=== PATIENT | male | born 1955 | race African-American/Black ===

== ENCOUNTER 2019-10-15 07:28 | Inpatient (IN) | payer OTHER ==
[2019-10-14 14:25] VITALS: BMI 27.6
[2019-10-15 07:55] LABS: HEMATOCRIT 43.9 % (35.4-49); HEMOGLOBIN 14.5 GM/dL (11.7-16.9); MCH 29.1 pg (25.7-33.7); MCHC 33.1 g/dl (32.0-35.9); MEAN CELL VOLUME 87.9 fl (80-96); PLATELET COUNT 313 K/MM3 (134-434); RDW 15.4 % (11.9-15.9); WHITE BLOOD COUNT 6.4 K/mm3 (4.0-10.0)
[2019-10-15] MEDS ORDERED: CEFAZOLIN 2 GM/D5W 2 GM/50 ML ML IVPB ONE (07:55)
[2019-10-15] MEDS ORDERED: ROCURONIUM BROMIDE 50 MG/5 ML SYRINGE ONE (08:01)
[2019-10-15] MEDS ORDERED: PROPOFOL 20 ML ONE ×3 (08:01)
--- NOTE | 2019-10-15 08:02 | HP ---
History & Physical Update - History History: No Change - Physical Physical: No Change - Assessment Assessment: No Change - Plan Plan: No Change
[2019-10-15] MEDS ORDERED: ceFAZolin SODIUM 1 GM VIAL ONE (08:08)
[2019-10-15] MEDS ORDERED: fentaNYL CITRATE 250 MCG/5 ML VIAL ONE (08:08)
[2019-10-15] MEDS ORDERED: MIDAZOLAM HCL 2 MG/2 ML SINGLE DOSE VIAL ONE ×3 (08:08→08:13)
[2019-10-15] MEDS ORDERED: DESFLURANE GAS 240 ML BOTTLE IH ONE (08:11)
[2019-10-15 08:18] LABS: ALBUMIN 3.9 g/dl (3.4-5.0); BILIRUBIN,TOTAL 0.6 mg/dL (0.2-1); BLOOD UREA NITROGEN 12.2 mg/dL (7-18); CALCIUM 9.7 mg/dL (8.5-10.1); CREATININE 1.1 mg/dL (0.55-1.3); POTASSIUM 4.4 mmol/L (3.5-5.1); TOT PROT 7.5 g/dl (6.4-8.2)
[2019-10-15] MEDS ORDERED: BUPIVACAINE HCL/PF 0.5% (5 MG/ML) 30 ML VIAL IJ ONE (08:32)
[2019-10-15] MEDS ORDERED: ceFAZolin SODIUM 1 GM VIAL IVPB ONE (08:56)
[2019-10-15] MEDS ORDERED: GLYCOPYRROLATE 0.2 MG/1 ML VIAL ONE ×3 (12:16→12:24)
[2019-10-15] MEDS ORDERED: NEOSTIGMINE METHYLSULFATE 0.5 MG/ML - 10 ML MDV ONE (12:16)
[2019-10-15] MEDS ORDERED: ACETAMINOPHEN INJECTION 100 ML IVPB ONE (13:12)
[2019-10-15] MEDS ORDERED: oxyCODONE HCL 5 MG TABLET PO PRN (13:16)
[2019-10-15] MEDS ORDERED: ONDANSETRON 4 MG/2 ML VIAL IVPUSH PRN (13:16)
[2019-10-15] MEDS ORDERED: OXYBUTYNIN CHLORIDE 5 MG TABLET PO PRN (13:20)
[2019-10-15] MEDS ORDERED: diphenhydrAMINE HCL 50 MG CAPSULE PO PRN (13:20)
[2019-10-15] MEDS ORDERED: ONDANSETRON 4 MG/2 ML VIAL IVPB PRN (13:20)
[2019-10-15] MEDS ORDERED: ACETAMINOPHEN 1000 MG/100 ML VIAL (NON FORMULARY) IVPB ONE (13:25)
--- NOTE | 2019-10-15 13:41 | OP ---
Operative Note - Note: Operative Date: 10/15/19 Pre-Operative Diagnosis: prostate cancer Operation: robotic assisted prostatectomy Surgeon: Maliha France Case Technician: Marialuisa Varela Anesthesiologist/ROBOT DESIGNER: Juma Davies Anesthesia: General Estimated Blood Loss (mls): 200 Fluid Volume Replaced (mls): 1,600 Operative Report Dictated: Yes
--- NOTE | 2019-10-15 13:43 | SURG ---
Surgery Furniture Servicer Note Furniture Servicer: Marialuisa Varela PA-C Date of Service: 10/15/19 Diagnosis: prostate cancer Procedure: robotic assisted prostatectomy I was present for the entirety of the operative procedure. For further detail, please refer to operative report. Visit type - Case Type Case Type: Scheduled - Emergency Emergency Visit: No - New patient This patient is new to me today: Yes Date on this admission: 10/15/19
[2019-10-15] MEDS: SODIUM CHLORIDE 1,000 ML IV SCH (15:00)
[2019-10-15] MEDS ORDERED: SEVOFLURANE 250 ML BTL ONE (16:40)
[2019-10-15] MEDS ORDERED: CEFAZOLIN 1 GM in DEXTROSE 5%-WATER - 50 ML IVPB SCH ×2 (17:00→17:30)
[2019-10-15] MEDS: CEFAZOLIN 1 GM/D5W 1 GM/50 ML BAG IVPB SCH (18:07)
[2019-10-15] MEDS: DOCUSATE SODIUM 100 MG CAPSULE (FP) PO SCH (21:13)
[2019-10-15] MEDS: ACETAMINOPHEN 500 MG TABLET (FP) PO SCH (21:14)
[2019-10-15] MEDS: oxyCODONE HCL 5 MG TABLET PO PRN (21:14)
[2019-10-15] MEDS ORDERED: SODIUM CHLORIDE 1,000 ML IV STA (23:25)
[2019-10-15 23:55] LABS: BASO % 1.4 % (0-2.0); HEMOGLOBIN 10.8 GM/dL (11.7-16.9); LYMPH % 15.6 % (8-40); MCH 28.8 pg (25.7-33.7); MCHC 32.8 g/dl (32.0-35.9); MEAN CELL VOLUME 87.8 fl (80-96); MEAN PLT VOLUME 9.7 fl (7.5-11.1); MONO % 7.5 % (3.8-10.2); NEUT % 75.5 % (42.8-82.8); PLATELET COUNT 248 K/MM3 (134-434); RBC 3.76 M/mm3 (4.00-5.60); RDW 15.2 % (11.9-15.9); WHITE BLOOD COUNT 7.2 K/mm3 (4.0-10.0)
--- NOTE | 2019-10-16 00:02 | RAPID ---
Physical Examination Vital Signs: Vital Signs Temperature 98.1 F 10/15/19 22:52 Pulse Rate 78 10/15/19 22:52 Respiratory Rate 20 10/15/19 22:52 Blood Pressure 142/70 10/15/19 22:52 O2 Sat by Pulse Oximetry (%) 99 10/15/19 21:00 Labs: CBC, BMP 10/15/19 07:37 10/15/19 07:37 Rapid Response - Rapid Response Assessment: rapid response called at 11:10pm A rapid was called because the patient was bleeding from surgical site after straining during bowel movement. Pt became diaphoretic, dizzy with brief LOC ( regained within one min) requiring assistance back to bed. He had elizabeth blood from MEGHAN drain of 150 in total ( 100 from first and 50 in second). bloody urine unable to r/o if procedural or acute. PE at beginning of rapid : 88/60 mmhg ,98bpm after trendelenburg : 107/56 mmHG , HR 98 bpm, then 118/66 mmHg HR 85 general : diaphoretic, AAOx3 HEENT: no JVD Lung: VBS b/l with diffuse wheezing HEART: tachy RRR no MRG abdomen: +BS, slightly distended but non tender or rigid or rebound tenderness extremities: 2+ pulses Plan: acute bleeding from surgical site from excessive straining [address] and NS bolus administered PRBCs if cbc shows drop in H/H CBC, CMP , PT, INR- for hemodynamic status and coag ekg for baseline CT abdomen and pelvis w/o contrast to r/o intra abdominal bleeding ICU transfer Surgeon contacted and Dr English contacted waiting for recommendations. Dr France will see pt in the morning
[2019-10-16 00:08] LABS: INR 1.05 (0.83-1.09); PROTHROMBIN TIME (PATIENT) 12.4 SEC (9.7-13.0)
[2019-10-16 00:11] LABS: ACTIVATED PTT 25.3 SECONDS (25.2-36.5)
--- NOTE | 2019-10-16 00:14 | CONSULT ---
Consultation: REQUESTING PROVIDER:Maliha France CONSULT REQUEST: We have been asked to medically evaluate this patient for acute blood loss. HISTORY OF PRESENT ILLNESS: 63M with PMH of HTN and prostate cancer who presented to [facility] for robotic prostatectomy on 10/15/19. Patient underwent procedure successfully, had estimated blood loss of 200 mL and fluid replacement of 1600 during procedure. He tolerated the effects of anesthesia well. On 10/15/19 at 2330 patient felt that he needed to have a bowel movement and ambulated to the bathroom with an assist. Patient recalls feeling light headed and weak in the bathroom and losing conciousness, and waking up diaphoretic. He was initially weak. Patient was moved to his bed after episode and placed in trendelenburg position. Initial BP was : 88/60 mmhg with HR of 98 bpm. After placing in trendelenburg patient was 107/56 with HR of 98. Patient was given 2L of NS, and had CT abdomen /pelvis done which showed 9.3 cm anterior, left pelvic wall and retro-vesicle hematoma [facility]. Dr. France was made aware, patient will receive 2 units of blood and will be seen by urology team in the morning. Patient currently denies any symptoms of weakness, diaphoresis, dizziness, light-headedness, chest pain, and shortness of breath. present at bedside. REVIEW OF SYSTEMS: CONSTITUTIONAL: Absent: fever, chills, diaphoresis, generalized weakness, malaise, loss of appetite, weight change HEENT: Absent: rhinorrhea, nasal congestion, throat pain, throat swelling, difficulty swallowing, mouth swelling, ear pain, eye pain, visual changes CARDIOVASCULAR: Absent: chest pain, syncope, palpitations, irregular heart rate, lightheadedness , peripheral edema RESPIRATORY: Absent: cough, shortness of breath, dyspnea with exertion, orthopnea, wheezing, stridor, hemoptysis GASTROINTESTINAL: Present: abdominal distension, intermittent suprapubic pain. Absent: abdominal pain, abdominal distension, nausea, vomiting, diarrhea, constipation, melena, hematochezia GENITOURINARY: Present: hematuria Absent: dysuria, frequency, urgency, hesitancy, flank pain , genital pain MUSCULOSKELETAL: Absent: myalgia, arthralgia, joint swelling, back pain, neck pain SKIN: Absent: rash, itching, pallor HEMATOLOGIC/IMMUNOLOGIC: Absent: easy bleeding, easy bruising, lymphadenopathy, frequent infections ENDOCRINE: Absent: unexplained weight gain, unexplained weight loss, heat intolerance, cold intolerance NEUROLOGIC: Absent: headache, focal weakness or paresthesias, dizziness, unsteady gait, seizure, mental status changes, bladder or bowel incontinence PSYCHIATRIC: Absent: anxiety, depression, suicidal or homicidal ideation, hallucinations. PHYSICAL EXAMINATION Vital Signs - 24 hr 10/15/19 10/15/19 10/15/19 08:00 13:02 13:15 Temperature 97.8 F 97.9 F Pulse Rate 68 79 81 Respiratory 18 14 14 Rate Blood Pressure 144/79 145/87 171/89 H O2 Sat by Pulse 97 95 Oximetry (%) 10/15/19 10/15/19 10/15/19 13:30 13:45 14:00 Temperature Pulse Rate 75 73 70 Respiratory 12 14 14 Rate Blood Pressure 128/55 L 155/86 152/78 O2 Sat by Pulse 96 94 L 95 Oximetry (%) 10/15/19 10/15/19 10/15/19 14:15 14:30 14:45 Temperature Pulse Rate 70 74 80 Respiratory 13 10 20 Rate Blood Pressure 147/83 145/65 138/67 O2 Sat by Pulse 96 97 96 Oximetry (%) 10/15/19 10/15/19 10/15/19 15:00 21:00 22:52 Temperature 98.7 F 98.1 F Pulse Rate 74 78 Respiratory 13 20 Rate Blood Pressure 130/71 142/70 O2 Sat by Pulse 99 99 Oximetry (%) GENERAL: Awake, alert, and fully oriented, in no acute distress. HEAD: Normal with no signs of trauma. EYES: Pupils equal, round and reactive to light, extraocular movements intact, sclera anicteric, conjunctiva clear. EARS, NOSE, THROAT: Ears normal, nares patent, oropharynx clear without exudates. Moist mucous membranes. NECK: Normal range of motion, supple without lymphadenopathy, JVD, or masses. Left external jugular IV in place. LUNGS: Breath sounds equal, clear to auscultation bilaterally. No wheezes, and no crackles. No accessory muscle use. HEART: Regular rate and rhythm, normal S1 and S2 without murmur, rub or gallop. ABDOMEN: Distended abdomen. Nontender. Hypoactive bowel sounds. MEGHAN drain in place in the right abdomen. Draining blood. Surgical site is covered with pressure dressing. Surgical site is nonerythematous, one suture is tied around drain distally from skin. MUSCULOSKELETAL: Normal range of motion at all joints. No bony deformities or tenderness. No CVA tenderness. UPPER EXTREMITIES: 2+ pulses, warm, well-perfused. No cyanosis. No clubbing. Cap refill <2 seconds. No peripheral edema. LOWER EXTREMITIES: 2+ pulses, warm, well-perfused. No calf tenderness. No peripheral edema. NEUROLOGICAL: Cranial nerves II-XII intact. Normal speech. Normal gait. SKIN: Warm, dry, normal turgor, no rashes or lesions noted. Laboratory Results - last 24 hr 10/15/19 10/15/19 10/15/19 07:37 07:37 07:37 WBC 6.4 RBC 5.00 Hgb 14.5 Hct 43.9 MCV 87.9 MCH 29.1 MCHC 33.1 RDW 15.4 Plt Count 313 MPV 9.0 Absolute Neuts (auto) Neutrophils % Lymphocytes % Monocytes % Eosinophils % Basophils % Nucleated RBC % PT with INR INR PTT (Actin FS) Sodium 140 Potassium 4.4 Chloride 104 Carbon Dioxide 30 Anion Gap 6 L BUN 12.2 Creatinine 1.1 Est GFR (CKD-EPI)AfAm 81.79 Est GFR (CKD-EPI)NonAf 70.57 Random Glucose 106 Calcium 9.7 Total Bilirubin 0.6 AST 17 ALT 22 Alkaline Phosphatase 79 Total Protein 7.5 Albumin 3.9 Blood Type A POSITIVE Antibody Screen Negative Crossmatch See Detail 10/15/19 10/15/19 10/15/19 16:00 23:50 23:50 WBC 7.2 RBC 3.76 L Hgb 10.8 L Hct 33.0 L D MCV 87.8 MCH 28.8 MCHC 32.8 RDW 15.2 Plt Count 248 D MPV 9.7 Absolute Neuts (auto) 5.4 Neutrophils % 75.5 Lymphocytes % 15.6 Monocytes % 7.5 Eosinophils % 0.0 Basophils % 1.4 Nucleated RBC % 0 PT with INR 12.40 INR 1.05 PTT (Actin FS) 25.3 Sodium Potassium Chloride Carbon Dioxide Anion Gap BUN Creatinine Est GFR (CKD-EPI)AfAm Est GFR (CKD-EPI)NonAf Random Glucose Calcium Total Bilirubin AST ALT Alkaline Phosphatase Total Protein Albumin Blood Type A POSITIVE Antibody Screen Crossmatch Active Medications Acetaminophen (Tylenol -) 1,000 mg PO Q6H [facility] Stop: 10/16/19 08:01 Last Admin: 10/15/19 21:14 Dose: 1,000 mg Amlodipine Besylate (Norvasc -) 5 mg PO DAILY [facility] Diphenhydramine HCl (Benadryl -) 50 mg PO DAILY PRN PRN Reason: FOR ITCHING Docusate Sodium (Colace -) 100 mg PO BID [facility] Last Admin: 10/15/19 21:13 Dose: 100 mg Sodium Chloride (Normal Saline -) 1,000 mls @ 75 mls/hr IV ASDIR [facility] Last Admin: 10/15/19 15:00 Dose: 0 mls Cefazolin Sodium (Ancef 1 Gm Premixed Ivpb -) 1 gm in 50 mls @ 100 mls/hr IVPB Q8H [facility] Stop: 10/16/19 01:59 Last Admin: 10/15/19 18:07 Dose: 100 mls/hr Ketorolac Tromethamine (Toradol Injection -) 15 mg IVPB Q8H [facility] Stop: 10/16/19 09:01 Ondansetron HCl (Zofran Injection) 4 mg IVPUSH Q6H PRN PRN Reason: NAUSEA AND/OR VOMITING Ondansetron HCl (Zofran Injection) 4 mg IVPB Q6H PRN PRN Reason: NAUSEA AND/OR VOMITING Oxybutynin Chloride (Ditropan -) 5 mg PO BID PRN PRN Reason: MUSCLE SPASMS Oxycodone HCl (Roxicodone -) 5 mg PO Q8H PRN PRN Reason: PAIN LEVEL 1-5 Last Admin: 10/15/19 21:14 Dose: 5 mg ASSESSMENT/PLAN: 60 M with PMH of HTN and Prostate cancer who presents s/p robot assisted prostatectomy (POD #0) with acute blood loss. Neuro -Stable. AAOx3. No acute neurological condition. -Cont to monitor Pulm -Stable, on RA satting at 100% CV Hypotension 2/2 acute blood loss Hx of hypertension -Previously hypotensive, but now hemodynamically stable with BP at 110/70, MAP 83 -Hold anti-hypertensives meds for now; may continue hemodynamics permitting. On Amlo 5 S/p Robotic Assisted Prostatectomy (POD #0), complicated by acute bleeding from surgical site NEHAL likely 2/2 post-op changes 9.3cm L pelvic wall and retro-vesicle hematoma -Urologist made aware; agreed to transfuse 2U pRBC given acute blood loss -CTAP done to r/o intra-abd bleed from surgical site; prelim read shows 9.3 cm anterior, left pelvic wall and retro-vesicle hematoma, minimal ascites but no abscess, left retroperitoneal edema but no hematoma, questionable mild bladder inflammation, splenic atrophy. -Mckeon draining bloody urine -Hold DVT ppx for now as per uro -Repeat CBC/BMP in AM -Monitor I/O -Pain control per surg Heme Acute Anemia 2/2 blood loss; 14.5 --> 10.8 (s/p 1,600 in OR and 2L bolus after syncopal episode) -2 Units PRBC -Recheck CBC after 1 unit. Repeat in AM labs. -Hold AC for now FEN: - NS @ 100 cc/hr - Monitor CMP - NPO in case he has possible procedure in AM Lines -MEGHAN drain in place, R lateral abd wall -L EJ in place Dispo: We will continue to follow the patient. Thank you for this consultative opportunity. Visit type - Emergency Visit Emergency Visit: No - New Patient This patient is new to me today: Yes Date on this admission: 10/16/19 - Critical Care Critical Care patient: Yes Total Critical Care Time (in minutes): 45 Critical Care Statement: The care of this patient involved high complexity decision making to prevent further life threatening deterioration of the patient 's condition and/or to evaluate & treat vital organ system(s) failure or risk of failure. ATTENDING PHYSICIAN STATEMENT I saw and evaluated the patient. I reviewed the resident's note and discussed the case with the resident. I agree with the resident's findings and plan as documented. SUBJECTIVE: OBJECTIVE: ASSESSMENT AND PLAN:
[2019-10-16 00:23] LABS: ALBUMIN 2.9 g/dl (3.4-5.0); BILIRUBIN,TOTAL 0.6 mg/dL (0.2-1); BLOOD UREA NITROGEN 16.4 mg/dL (7-18); CALCIUM 8.2 mg/dL (8.5-10.1); CREATININE 1.6 mg/dL (0.55-1.3); POTASSIUM 4.5 mmol/L (3.5-5.1); TOT PROT 5.8 g/dl (6.4-8.2)
[2019-10-16] MEDS ORDERED: KETOROLAC TROMETHAMINE 15 MG/ML VIAL IVPB PRN (01:00)
[2019-10-16] MEDS ORDERED: KETOROLAC TROMETHAMINE 15 MG/ML VIAL IVPB SCH (01:00)
--- NOTE | 2019-10-16 01:44 | OPR ---
Date of Surgery: 10/16/19 Pre-Procedure Information Pre-op Diagnosis:Prostate cancer [C61] Procedure Information Procedure(s): PROSTATECTOMY LAPAROSCOPIC RADICAL ROBOTIC SI Anesthesia:General Surgeon(s) and Role: * Maliha France MD - Primary Loan Processing Supervisor: GERDA Sena Procedure Description Indications:Prostate cancer Findings: right nerve sparing robotic radical prostatectomy was performed. Vesicourethral anastamosis with 3-0 Vloc. Procedure Details: The patient was prepped and draped in the usual fashion and placed in modified lithotomy position. All pressure points were padded and the patient was secured to the table. 16Fr chi catheter was inserted. A supraumbilical incision was made. Veress needle was introduced. The abdomen was insufflated to 15 mmHg. A 12 mm non-bladed trocar was introduced. The abdomen was inspected. There was no evidence of injury on entry. Two robotic trocars were placed in the right lower quadrant, one in the left lower quadrant, and an assistant chief engineer 12 mm nonbladed AirSeal trocar was introduced two fingerbreadths above the anterior superior iliac spine on the left. The patient was placed in steep Trendelenburg. The AirSeal system was initiated and maintained at 13 mmHg, and the robot was brought in and docked into place.Sigmoid adhesions were taken down with cold scissors.The medial umbilical ligaments were divided. The space of Retzius was developed. Superficial dorsal vein was divided with electrocatuery. Puboprostatic ligaments were divided. Endopelvic fascia was incised. The dorsal vein complex was controlled using 0 Vicryl figure-of-8 suture. prostate was defattened and preprostatic fat sent for pathology. The prostatovesical junction was divided using electrocautery. Vas deferens were identified, fulgurated, and divided. Seminal vesicles were dissected free of attachments. The posterior Denonvilliers fascia was divided. The rectum was peeled off the posterior aspect of the prostate as far down as possible. Bilateral prostatic pedicles were taken using Hem-o-lock clips and divided. Neurovascular bundleswere spared.The apex was dissected under direct vision. The anterior and posterior urethra were then divided. Finally, fibers of the posterior fibrous raphe were divided and the prostate was detached.Hemostasis was checked and no bleeders were seen. A 3-0 V-loc suture was used in the vesicourethral anastomosis from 6 o'clock to 12 o'clock clockwise and counterclockwise and tied in the middle. Irrigation with a new 18Fr foleyrevealedno leak. Balloon was inflated with 10cc.A MEGHAN drain was placed and brought out the most lateral right-sided trocar incision and tied to the skin using 3-0 Nylon. The right pelvic lymph nodes and prostate were sent in endocatch bag . The robot was undocked and removed. The patient was taken out of Trendelenburg. The prostate was then removed from an extension of the umbilical trocar. Fascia was closed using figure of 8 0-vicryl suture. The skin was closed using 4-[address]oc[address] France was present and scrubbed for duration of case. Estimated Blood Loss:200 ml
[2019-10-16] MEDS: CEFAZOLIN 1 GM/D5W 1 GM/50 ML BAG IVPB SCH (02:00)
[2019-10-16] MEDS: ACETAMINOPHEN 500 MG TABLET (FP) PO SCH ×2 (04:48→11:21)
[2019-10-16] MEDS ORDERED: CEFAZOLIN 1 GM in DEXTROSE 5%-WATER - 50 ML IVPB ONE (05:00)
[2019-10-16] MEDS ORDERED: ceFAZolin SODIUM 1 GM VIAL ONE (05:09)
[2019-10-16] MEDS ORDERED: DEXTROSE 5%-WATER - 50 ML IVPB ONE (05:09)
[2019-10-16] MEDS ORDERED: SODIUM CHLORIDE 1,000 ML IV SCH ×2 (06:00→23:48)
--- NOTE | 2019-10-16 07:47 | PN ---
Progress Note (short form) - Note Progress Note: UROLOGY Last night a Rapid Response was called at 11:10PM after patient became diaphoretic while in the bathroom. States he noticed bleeding coming from drain port while trying to have a bowel movement. Per notes from last nights event, there was a brief LOC (regained within 1 min) . Was assisted back to bed. Elizabeth blood noted in MEGHAN 150 mL. Patient became hypotensive 88/60. He was placed in trendelenburg and bp 107/56. Transferred to ICU for closer observation. Received [address] ordered and awaiting official read. Dr. Palencia was notified Currently, patient is in bed with HOB at 30 degrees. No complaints. Denies n/v/f/c, CP, palpitations, weak, dizzy, SOB or DAY. Last Vital Signs Temp Pulse Resp BP Pulse Ox 97.6 F 75 18 128/67 99 10/16/19 02:00 10/16/19 07:31 10/16/19 07:31 10/16/19 07:31 10/15/19 21:00 HH Trend 10/15/19 10/15/19 10/16/19 07:37 23:50 06:26 Hgb 14.5 10.8 L Pending Hct 43.9 33.0 L D Pending Urine 10/15/19 10/15/19 10/16/19 09:41 15:00 05:16 Chi 200 100 500 PE Gen: alert. nad ABD: all surgical ports c/d/i. RLQ MEGHAN dressing changed on rounds (5 mins later dressing with fresh blood). +BS in all quadrants. : chi to gravity (hint of pink to urine, no clots) LE: 2+ pulses bilat Problem List - Problems (1) Prostate cancer Assessment/Plan: POD #1 s/p Robotic Prostatectomy. Rapid Response secondary to ? syncopal episode while on commode straining to have bowel movement. Noted elizabeth blood in MEGHAN 300mL since surgery. Hemodynamically stable at this time. Serial H&H Transfuse pRBC if < 10/30 f/u Official CT scan Record MEGHAN and Chi output q shift ABD binder OOB to chair if not symptomatic Cont ICU observation Dr. Palencia made aware and agrees with above plan Code(s): C61 - MALIGNANT NEOPLASM OF PROSTATE (2) Anemia Code(s): D64.9 - ANEMIA, UNSPECIFIED
[2019-10-16 08:00] LABS: HEMATOCRIT 32.1 % (35.4-49); HEMOGLOBIN 10.7 GM/dL (11.7-16.9); MCH 29.3 pg (25.7-33.7); MCHC 33.3 g/dl (32.0-35.9); MEAN CELL VOLUME 88.1 fl (80-96); MEAN PLT VOLUME 9.2 fl (7.5-11.1); PLATELET COUNT 214 K/MM3 (134-434); RBC 3.65 M/mm3 (4.00-5.60); RDW 14.8 % (11.9-15.9); WHITE BLOOD COUNT 13.6 K/mm3 (4.0-10.0)
[2019-10-16 08:03] LABS: BLOOD UREA NITROGEN 17.5 mg/dL (7-18); CALCIUM 8.2 mg/dL (8.5-10.1); CREATININE 1.2 mg/dL (0.55-1.3); MAGNESIUM 2.1 mg/dL (1.8-2.4); PHOSPHOROUS 3.4 mg/dL (2.5-4.9); POTASSIUM 4.9 mmol/L (3.5-5.1)
[2019-10-16] MEDS ORDERED: HEPARIN NA (PORCINE) 5,000 UNITS/ML 1ML VIAL SQ SCH (10:00)
[2019-10-16] MEDS ORDERED: amLODIPine BESYLATE 5 MG TABLET (FP) PO SCH (10:00)
[2019-10-16] MEDS: DOCUSATE SODIUM 100 MG CAPSULE (FP) PO SCH ×2 (11:46→23:41)
--- NOTE | 2019-10-16 12:03 | PN ---
Teaching Attending Note Name of Resident: Marybel Blevins ATTENDING PHYSICIAN STATEMENT I saw and evaluated the patient. I reviewed the resident's note and discussed the case with the resident. I agree with the resident's findings and plan as documented. SUBJECTIVE: Pt seen and examined in the ICU. Transferred to ICU for acute bleeding. Currently denies shortness of breath, chest pain, dizziness. OBJECTIVE: Vital Signs Period Temp Pulse Resp BP Sys/Meier Pulse Ox Last 24 Hr 97.1 F-98.8 F 70-95 10-26 110-171/55-89 94-99 Intake & Output 10/13/19 10/14/19 10/15/19 10/16/19 23:59 23:59 23:59 23:59 Intake Total 1999 1450 Output Total 615 660 Balance 1385 790 Weight 97.522 kg Gen: NAD at rest Heart: RRR Lung: decreased breath sounds at the bases Abd: soft, nontender MEGHAN with sanguinous fluid Ext: no edema CBC, BMP 10/16/19 06:26 10/16/19 06:26 Active Medications Amlodipine Besylate (Norvasc -) 5 mg PO DAILY [facility] Last Admin: 10/16/19 11:00 Dose: Not Given Diphenhydramine HCl (Benadryl -) 50 mg PO DAILY PRN PRN Reason: FOR ITCHING Docusate Sodium (Colace -) 100 mg PO BID [facility] Last Admin: 10/16/19 11:46 Dose: 100 mg Sodium Chloride (Normal Saline -) 1,000 mls @ 75 mls/hr IV ASDIR [facility] Last Admin: 10/15/19 15:00 Dose: 0 mls Sodium Chloride (Normal Saline -) 1,000 mls @ 100 mls/hr IV ASDIR [facility] Last Admin: 10/16/19 07:46 Dose: Not Given Ondansetron HCl (Zofran Injection) 4 mg IVPUSH Q6H PRN PRN Reason: NAUSEA AND/OR VOMITING Ondansetron HCl (Zofran Injection) 4 mg IVPB Q6H PRN PRN Reason: NAUSEA AND/OR VOMITING Oxybutynin Chloride (Ditropan -) 5 mg PO BID PRN PRN Reason: MUSCLE SPASMS Oxycodone HCl (Roxicodone -) 5 mg PO Q8H PRN PRN Reason: PAIN LEVEL 1-5 Last Admin: 10/15/19 21:14 Dose: 5 mg ASSESSMENT AND PLAN: Prostate Ca s/p Robotic Assisted Prostatectomy Acute Blood Loss Anemia HTN - monitor H/H - transfuse as needed - urology f/u - IVF - PO when ok with surgery - DVT prophylaxis - disposition per surgery
--- NOTE | 2019-10-16 12:36 | EKG ---
Test Reason : Blood Pressure : / mmHG Vent. Rate : 071 BPM Atrial Rate : 071 BPM P-R Int : 172 ms QRS Dur : 084 ms QT Int : 426 ms P-R-T Axes : 062 -26 251 degrees QTc Int : 462 ms SINUS RHYTHM WITH OCCASIONAL PREMATURE VENTRICULAR COMPLEXES T WAVE ABNORMALITY, CONSIDER INFEROLATERAL ISCHEMIA PROLONGED QT ABNORMAL ECG NO PREVIOUS ECGS AVAILABLE Confirmed by HALIE OTERO, ABRAM ([id number]) on 10/16/2019 12:36:27 PM Referred By: Suly ASHLEY Confirmed By:ABRAM AMBROSE MD
[2019-10-16 13:34] LABS: HEMATOCRIT 35.7 % (35.4-49); HEMOGLOBIN 11.6 GM/dL (11.7-16.9); MCH 28.8 pg (25.7-33.7); MCHC 32.5 g/dl (32.0-35.9); MEAN CELL VOLUME 88.6 fl (80-96); MEAN PLT VOLUME 9.4 fl (7.5-11.1); PLATELET COUNT 205 K/MM3 (134-434); RBC 4.03 M/mm3 (4.00-5.60); RDW 14.6 % (11.9-15.9); WHITE BLOOD COUNT 15.9 K/mm3 (4.0-10.0)
[2019-10-16] MEDS: SODIUM CHLORIDE 1,000 ML IV SCH (14:37)
--- NOTE | 2019-10-16 14:56 | PN ---
Physical Exam: SUBJECTIVE: Patient seen and examined. POD #1 s/p prostatectomy. R MEGHAN drain in place. S/p 2U pRBCs 1 overnight 1 this morning. OBJECTIVE: Vital Signs Period Temp Pulse Resp BP Sys/Meier Pulse Ox Last 24 Hr 97.1 F-98.8 F 72-95 13-26 110-142/64-79 96-99 GENERAL: AOx3 NAD HEENT: NCAT PERRLA LUNGS: CTABL breathing comfortably on room air HEART: RRR S1S2 heard no mrg ABDOMEN: Soft ND. Mildly to palpation lower quadrants. EXTREMITIES: 2+ pulses, warm, well-perfused, no edema. NEUROLOGICAL: nonfocal exam PSYCH: Normal mood, normal affect. SKIN: no rashes or lesions noted Laboratory Results - last 24 hr 10/15/19 10/15/19 10/15/19 07:37 16:00 23:50 WBC 7.2 RBC 3.76 L Hgb 10.8 L Hct 33.0 L D MCV 87.8 MCH 28.8 MCHC 32.8 RDW 15.2 Plt Count 248 D MPV 9.7 Absolute Neuts (auto) 5.4 Neutrophils % 75.5 Lymphocytes % 15.6 Monocytes % 7.5 Eosinophils % 0.0 Basophils % 1.4 Nucleated RBC % 0 PT with INR INR PTT (Actin FS) Sodium Potassium Chloride Carbon Dioxide Anion Gap BUN Creatinine Est GFR (CKD-EPI)AfAm Est GFR (CKD-EPI)NonAf Random Glucose Calcium Phosphorus Magnesium Total Bilirubin AST ALT Alkaline Phosphatase Total Protein Albumin Blood Type A POSITIVE A POSITIVE Antibody Screen Negative Crossmatch See Detail 10/15/19 10/15/19 10/16/19 23:50 23:50 06:26 WBC 13.6 H RBC 3.65 L Hgb 10.7 L Hct 32.1 L MCV 88.1 MCH 29.3 MCHC 33.3 RDW 14.8 Plt Count 214 MPV 9.2 Absolute Neuts (auto) Neutrophils % Lymphocytes % Monocytes % Eosinophils % Basophils % Nucleated RBC % PT with INR 12.40 INR 1.05 PTT (Actin FS) 25.3 Sodium 138 Potassium 4.5 Chloride 103 Carbon Dioxide 25 Anion Gap 10 BUN 16.4 Creatinine 1.6 H Est GFR (CKD-EPI)AfAm 51.99 Est GFR (CKD-EPI)NonAf 44.86 Random Glucose 210 H Calcium 8.2 L Phosphorus Magnesium Total Bilirubin 0.6 AST 15 ALT 19 Alkaline Phosphatase 57 Total Protein 5.8 L Albumin 2.9 L Blood Type Antibody Screen Crossmatch 10/16/19 10/16/19 06:26 13:04 WBC 15.9 H RBC 4.03 Hgb 11.6 L Hct 35.7 MCV 88.6 MCH 28.8 MCHC 32.5 RDW 14.6 Plt Count 205 MPV 9.4 Absolute Neuts (auto) Neutrophils % Lymphocytes % Monocytes % Eosinophils % Basophils % Nucleated RBC % PT with INR INR PTT (Actin FS) Sodium 139 Potassium 4.9 Chloride 104 Carbon Dioxide 28 Anion Gap 6 L BUN 17.5 Creatinine 1.2 Est GFR (CKD-EPI)AfAm 73.62 Est GFR (CKD-EPI)NonAf 63.52 Random Glucose 125 H Calcium 8.2 L Phosphorus 3.4 Magnesium 2.1 Total Bilirubin AST ALT Alkaline Phosphatase Total Protein Albumin Blood Type Antibody Screen Crossmatch Active Medications Generic Name Dose Route Start Last Admin Trade Name Freq PRN Reason Stop Dose Admin Amlodipine Besylate 5 mg 10/16/19 10:00 10/16/19 11:00 Norvasc - PO Not Given DAILY LAMIN Diphenhydramine HCl 50 mg 10/15/19 13:20 Benadryl - PO DAILY PRN FOR ITCHING Docusate Sodium 100 mg 10/15/19 22:00 10/16/19 11:46 Colace - PO 100 mg BID LAMIN Administration Sodium Chloride 1,000 mls @ 75 mls/hr 10/15/19 13:30 10/15/19 15:00 Normal Saline - IV 0 mls ASDIR LAMIN Administration Sodium Chloride 1,000 mls @ 100 mls/hr 10/16/19 06:00 10/16/19 07:46 Normal Saline - IV Not Given ASDIR LAMIN Ondansetron HCl 4 mg 10/15/19 13:16 Zofran Injection IVPUSH Q6H PRN NAUSEA AND/OR VOMITING Ondansetron HCl 4 mg 10/15/19 13:20 Zofran Injection IVPB Q6H PRN NAUSEA AND/OR VOMITING Oxybutynin Chloride 5 mg 10/15/19 13:20 Ditropan - PO BID PRN MUSCLE SPASMS Oxycodone HCl 5 mg 10/15/19 13:24 10/15/19 21:14 Roxicodone - PO 5 mg Q8H PRN Administration PAIN LEVEL 1-5 CT abd/pel: anterior, left pelvic wall and rectovesical spaces note is made of acute hematoma measuring approximately 9.3 x 7.5 x 5.4 cm. There is mild left retroperitoneal soft tissue edema at the level of the lower abdomen. The prostate gland is not definitely visualized possibly postsurgical basis. A small amount of air accumulation is seen within the extraperitoneal spaces of the lower pelvis bilaterally. A small amount of free intraperitoneal air is noted which may be postsurgical in nature and/or secondary to bowel perforation. Correlate clinically. A very small amount of perihepatic free intraperitoneal fluid is seen. Marked splenic atrophy. There is mild enlargement of the lateral limb of the left adrenal gland probably representing a small adenoma. Moderate to marked bilateral L4-5 degenerative facet arthropathy with resultant minimal to mild L4- L5 degenerative spondylolisthesis. ASSESSMENT/PLAN: 63 y.o. M PMH HTN & prostate CA s/p total prostatectomy presenting to ICU for post-surgical hypotensive episode. 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 #Cardiovascular -Hypotensive episode yest; BP now stable -monitor vitals -EKG 10/16: sinus rhythm, occasional pvc's. qtc 462 #GI -CT abd/pel as above. MEGHAN continuing to drain, 300mL total today, bloody drainage -Abdominal binder in place #Heme -Hgb 11.6 s/p 2nd unit pRBC -transfuse prb if hgb <10 as per surgery -Monitor H&H -Leukocytosis preent likely reactive; f/u repeat cbc # -s/p total prostatectomy pod#1 (Dr. France) -Urology following -no BM's but + passing flatus -chi in place draining yellow urine #PPX -SCDs #FEN -NS @100mL/ hr -Trend lytes replete prn -sodium controlled diet #Pain control -tylenol prn Visit type - Emergency Visit Emergency Visit: No - New Patient This patient is new to me today: Yes Date on this admission: 10/16/19 - Critical Care Critical Care patient: Yes Total Critical Care Time (in minutes): 36 Critical Care Statement: The care of this patient involved high complexity decision making to prevent further life threatening deterioration of the patient's condition and/or to evaluate & treat vital organ system(s) failure or risk of failure. ATTENDING PHYSICIAN STATEMENT I saw and evaluated the patient. I reviewed the resident's note and discussed the case with the resident. I agree with the resident's findings and plan as documented. SUBJECTIVE: OBJECTIVE: ASSESSMENT AND PLAN:
[2019-10-16] MEDS: oxyCODONE HCL 5 MG TABLET PO PRN (16:59)
[2019-10-16] MEDS ORDERED: SIMETHICONE 80 MG TAB.CHEW (FP) PO PRN (20:12)
[2019-10-16] MEDS ORDERED: SIMETHICONE 80 MG TAB.CHEW (FP) ONE (20:15)
[2019-10-16 21:08] LABS: HEMATOCRIT 34.2 % (35.4-49); HEMOGLOBIN 11.4 GM/dL (11.7-16.9); MCH 29.1 pg (25.7-33.7); MCHC 33.3 g/dl (32.0-35.9); MEAN CELL VOLUME 87.5 fl (80-96); MEAN PLT VOLUME 9.2 fl (7.5-11.1); PLATELET COUNT 193 K/MM3 (134-434); RBC 3.91 M/mm3 (4.00-5.60); RDW 15.1 % (11.9-15.9)
[2019-10-16] MEDS ORDERED: ONDANSETRON 4 MG/2 ML VIAL IVPUSH PRN (23:48)
[2019-10-16] MEDS ORDERED: OXYBUTYNIN CHLORIDE 5 MG TABLET PO PRN (23:48)
[2019-10-16] MEDS ORDERED: ONDANSETRON 4 MG/2 ML VIAL IVPB PRN (23:48)
[2019-10-16] MEDS ORDERED: diphenhydrAMINE HCL 50 MG CAPSULE PO PRN (23:48)
[2019-10-16] MEDS ORDERED: CEFAZOLIN 2 GM/D5W 2 GM/50 ML ML IVPB ONE (23:48)
[2019-10-17 08:32] LABS: HEMATOCRIT 33.2 % (35.4-49); HEMOGLOBIN 11.2 GM/dL (11.7-16.9); MCH 29.2 pg (25.7-33.7); MCHC 33.8 g/dl (32.0-35.9); MEAN CELL VOLUME 86.4 fl (80-96); MEAN PLT VOLUME 9.3 fl (7.5-11.1); PLATELET COUNT 212 K/MM3 (134-434); RBC 3.84 M/mm3 (4.00-5.60); RDW 14.5 % (11.9-15.9); WHITE BLOOD COUNT 13.6 K/mm3 (4.0-10.0)
[2019-10-17 09:07] LABS: BLOOD UREA NITROGEN 11.3 mg/dL (7-18); CALCIUM 8.6 mg/dL (8.5-10.1); CREATININE 0.9 mg/dL (0.55-1.3); MAGNESIUM 2.1 mg/dL (1.8-2.4); PHOSPHOROUS 2.6 mg/dL (2.5-4.9)
--- NOTE | 2019-10-17 09:58 | DS ---
Physical Exam: SUBJECTIVE: Patient seen and examined OBJECTIVE: Vital Signs Temperature 98.9 F 10/17/19 06:08 Pulse Rate 96 H 10/17/19 06:08 Respiratory Rate 20 10/17/19 06:08 Blood Pressure 144/80 10/17/19 06:08 O2 Sat by Pulse Oximetry (%) 94 L 10/16/19 21:00 PHYSICAL EXAM GENERAL: The patient is awake, alert, and fully oriented, in no acute distress. HEAD: Normal with no signs of trauma. EYES: PERRL, extraocular movements intact, sclera anicteric, conjunctiva clear. ENT: Ears normal, nares patent, oropharynx clear without exudates, moist mucous membranes. NECK: Trachea midline, full range of motion LUNGS: Breathing comfortably, no accessory muscle use. ABDOMEN: Soft, mild diffuse tenderness, nondistended, no guarding, no rebound, no hepatosplenomegaly, no masses. Incisions clean with no erythema or discharge. Drain with serosanguinous drainage (removed) EXTREMITIES: warm, well-perfused, no edema. NEUROLOGICAL: Cranial nerves II through XII grossly intact. Normal speech, gait not observed. PSYCH: Normal mood, normal affect. SKIN: Warm, dry, normal turgor, no rashes or lesions noted. LABS CBC,CMP WBC 13.6 K/mm3 (4.0-10.0) H 10/17/19 07:36 RBC 3.84 M/mm3 (4.00-5.60) L 10/17/19 07:36 Hgb 11.2 GM/dL (11.7-16.9) L 10/17/19 07:36 Hct 33.2 % (35.4-49) L 10/17/19 07:36 MCV 86.4 fl (80-96) 10/17/19 07:36 MCH 29.2 pg (25.7-33.7) 10/17/19 07:36 MCHC 33.8 g/dl (32.0-35.9) 10/17/19 07:36 RDW 14.5 % (11.9-15.9) 10/17/19 07:36 Plt Count 212 K/MM3 (134-434) 10/17/19 07:36 MPV 9.3 fl (7.5-11.1) 10/17/19 07:36 Absolute Neuts (auto) 5.4 K/mm3 (1.5-8.0) 10/15/19 23:50 Neutrophils % 75.5 % (42.8-82.8) 10/15/19 23:50 Lymphocytes % 15.6 % (8-40) 10/15/19 23:50 Monocytes % 7.5 % (3.8-10.2) 10/15/19 23:50 Eosinophils % 0.0 % (0-4.5) 10/15/19 23:50 Basophils % 1.4 % (0-2.0) 10/15/19 23:50 Nucleated RBC % 0 % (0-0) 10/15/19 23:50 Sodium 139 mmol/L (136-145) 10/17/19 07:36 Potassium 4.0 mmol/L (3.5-5.1) 10/17/19 07:36 Chloride 104 mmol/L (98-107) 10/17/19 07:36 Carbon Dioxide 28 mmol/L (21-32) 10/17/19 07:36 Anion Gap 7 MMOL/L (8-16) L 10/17/19 07:36 BUN 11.3 mg/dL (7-18) 10/17/19 07:36 Creatinine 0.9 mg/dL (0.55-1.3) 10/17/19 07:36 Est GFR (CKD-EPI)AfAm 104.24 10/17/19 07:36 Est GFR (CKD-EPI)NonAf 89.94 10/17/19 07:36 Random Glucose 117 mg/dL (74-106) H 10/17/19 07:36 Calcium 8.6 mg/dL (8.5-10.1) 10/17/19 07:36 Phosphorus 2.6 mg/dL (2.5-4.9) 10/17/19 07:36 Magnesium 2.1 mg/dL (1.8-2.4) 10/17/19 07:36 Total Bilirubin 0.6 mg/dL (0.2-1) 10/15/19 23:50 AST 15 U/L (15-37) 10/15/19 23:50 ALT 19 U/L (13-61) 10/15/19 23:50 Alkaline Phosphatase 57 U/L (45-117) 10/15/19 23:50 Total Protein 5.8 g/dl (6.4-8.2) L 10/15/19 23:50 Albumin 2.9 g/dl (3.4-5.0) L 10/15/19 23:50 HOSPITAL COURSE: Date of Admission:10/15/19 Date of Discharge: 10/17/19 63yo M presented to hospital for scheduled Robotic prostatectomy for prostate cancer. Pt tolerated the procedure well and was transferred to Med/Surg floor. While on the floor pt had episode of hypotension and bleeding around Drain site. Pt had rapid response that found that pt was anemic and transfusion of pRBCs was given. Pt kept overnight in ICU and found to be stable and sent back to Med/Surg. While on the floor pt pain was well controlled, tolerating diet, and ambulating well. Pt has chi in place which is clear and pt will be discharged home with chi in place. Pt will follow up with Dr. Palencia next week for chi removal. Minutes to complete discharge: 25 Visit type - Case Type Case Type: Scheduled - Emergency Emergency Visit: No - New patient This patient is new to me today: No - Critical Care Critical Care patient: No
[2019-10-17] MEDS ORDERED: amLODIPine BESYLATE 5 MG TABLET (FP) PO SCH (10:00)
[2019-10-17] MEDS ORDERED: DOCUSATE SODIUM 100 MG CAPSULE (FP) PO SCH (10:00)
[2019-10-17 15:58] VITALS: BP 158/84; PULSE 88; TEMP 98.2
--- NOTE | 2019-10-22 13:34 | PATH ---
Surgical Pathology Report Patient Name: ZINA CANALES [facility]. Rec. #: [id number] /Age/Gender: 1955 (Age: 63) / M Account: [id number] Location: [address] [place] [address] Taken: 10/15/2019 Received: 10/16/2019 Reported: 10/22/2019 Physicians: Maliha France M.D. Specimen(s) Received A: PREPROSTATIC FAT B: PROSTATE AND SEMINAL VESICLE Clinical History Prostate cancer Final Diagnosis A. PREPROSTATIC FAT, BIOPSY: BENIGN FIBROADIPOSE TISSUE. NO CARCINOMA IDENTIFIED. B. PROSTATE AND SEMINAL VESICLES, ROBOTIC RADICAL PROSTATECTOMY: PROSTATE ACINAR ADENOCARCINOMA, MICHELLE SCORE (3 + 4 = 7), GRADE GROUP 2. TUMOR VOLUME: ~15% OF GLAND VOLUME. TUMOR FOCALITY: MULTIFOCAL, PRESENT BILATERALLY. HIGH GRADE PROSTATIC INTRAEPITHELIAL NEOPLASIA (HGPIN) PRESENT. RIGHT AND LEFT SEMINAL VESICLES ARE UNINVOLVED. NO URINARY BLADDER NECK INVASION IDENTIFIED. NO LYMPHOVASCULAR INVASION IDENTIFIED. NO PERINEURAL INVASION IDENTIFIED. NO EXTRAPROSTATIC EXTENSION IDENTIFIED. SURGICAL MARGIN IS NEGATIVE. AJCC TNM STAGE (8TH EDITION): pT2 pNX. SEE SUMMARY BELOW. Comments Prostate Carcinoma: Surgical Pathology Cancer Case Summary (Based on AJCC (TNM) 8th Edition) PROSTATE GLAND: Radical Prostatectomy Procedure _X_ Radical prostatectomy Prostate Size Weight: (grams): 54 g Size (centimeters): 5.5 x 3.7 x 3.3 cm Histologic Type _X_ Acinar adenocarcinoma Histologic Grade Grade Group and Jupiter Score _X_ Grade group 2 (Michelle Score 3+4 =7) Percentage of Pattern 4 in Michelle Score 7 (3+4, 4+3) Cancer (report if applicable): ~10 % Intraductal Carcinoma (IDC) _X_ Not identified Tumor Quantitation Estimated percentage of prostate involved by tumor: ~15 % Tumor size (dominant nodule, if present): Not identified Extraprostatic Extension _X_ Not identified Urinary Bladder Neck Invasion _X_ Not identified Seminal Vesicle Invasion _X_ Not identified Lymphovascular Invasion _X_ Not identified Perineural Invasion _X_ Not identified Margins _X_ Uninvolved by invasive carcinoma Treatment Effect _X_ No known presurgical therapy Regional Lymph Nodes _X_ No lymph nodes submitted or found Pathologic Stage Classification (pTNM, AJCC 8th Edition) Primary Tumor (pT) _X_ pT2: Organ confined Regional Lymph Nodes Category (pN) _X_ pNX: Regional lymph nodes cannot be assessed Additional Pathologic Findings _X_ High-grade prostatic intraepithelial neoplasia (PIN) _X_ Nodular prostatic hyperplasia Electronically Signed Tata Monzon M.D. Addendum Reported: 10/22/2019 Addendum Diagnosis Case discussed with Dr. France. Tata Monzon M.D. Gross Description A. Received in formalin labeled "pre-prostatic fat," is a 4.2 x 3.0 x 0.4 cm portion of yellow, lobulated adipose tissue. The specimen is submitted in toto in 2 cassettes. B. Received in formalin labeled "prostate and seminal vesicle," is a 54 g radical prostatectomy specimen measuring 5.5 cm from left to right, 3.7 cm from anterior to posterior and 3.3 cm from superior to inferior. The specimen displays attached adnexa. The right seminal vesicle measures 1.7 x 1.5 x 0.7 cm and the right back deferens measures 3 cm in length. The left seminal vesicle measures 2.7 x 1.1 x 0.5 cm and appears adhesed to the left has deferens which measures 5.7 cm in length. The outer surface is bowser and intact. The left side is inked black and the right side is inked green. Sectioning reveals a 3.2 x 2.3 cm nodular area surrounding the urethra. The remaining prostatic parenchyma is bowser and spongy. No definitive mass can be identified grossly. [employer] sections are submitted in 33 cassettes as follows: 1-coned left apex; 2-coned right apex; 3-8-left anterior sequentially submitted from apex to base; 9-14-left posterior sequentially submitted from apex to base; 15-20-right anterior sequentially submitted from apex to base; 21-26-right posterior sequentially submitted from apex to base; 27-28-coned left base; 29-30-coned right base; 31-left seminal vesicle with prostatic parenchyma; 32-right seminal vesicle with prostatic parenchyma; 33-left and right vas deferens margins. 10/17/201910/17/2019
== END 2019-10-17 15:39 | disposition home or self-care (01) | DRG 480 ==
LOC: JSAMEDAYSX 07:28 → J6S 15:37 → JICU 10-16 00:49 → J5S 10-16 23:06
PROVIDERS: ADMIT Student in an Organized Health Care Education/Training Program; ATTEND Student in an Organized Health Care Education/Training Program
PROC: 0VT00ZZ Resection of Prostate, Open Approach (ICD-10-PCS; principal; 2019-10-16)
PROC: 30233N1 Transfusion of Nonautologous Red Blood Cells into Peripheral Vein, Percutaneous Approach (ICD-10-PCS; 2019-10-16)
DX: C61 Malignant neoplasm of prostate (principal); I95.81 Postprocedural hypotension; I10 Essential (primary) hypertension; D62 Acute posthemorrhagic anemia; D72.829 Elevated white blood cell count, unspecified
CPT/HCPCS: 36415; 36430; 36511; 74176-TC; 80048; 80053; 83735; 84100; 85025; 85027; 85610; 85730; 86850; 86900; 86901; 86922; 88304-TC; 88309-TC; 93005; 93010; 94760; 97116-GP; 97161-GP; J0131; J7030; P9038; P9058